=== PATIENT | male | born 1975 | race Caucasian/White ===

== ENCOUNTER 2018-04-29 03:44 | Emergency (ER) | payer OTHER ==
[2018-04-29] MEDS ORDERED: PROPARACAINE/FLUORESCEIN SOD 5 ML OPHT.BTL ONE (03:53)
[2018-04-29] MEDS ORDERED: PROPARACAINE 0.5% 15 ML OPHT DROP ONE (03:57)
[2018-04-29] MEDS ORDERED: PROPARACAINE 0.5% 15 ML OPHT DROP EACHEYE ONE (04:12)
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
[2018-04-29] MEDS ORDERED: ERYTHROMYCIN 0.5% 1 GM OPHT.OINT LEFTEYE ONE (04:50)
[2018-04-29 05:16] VITALS: BP 142/80
== END 2018-04-29 05:16 | disposition home or self-care (01) ==
DX: S05.92XA Unspecified injury of left eye and orbit, initial encounter (principal); T49.2X5A Adverse effect of local astringents and local detergents, initial encounter; Y99.8 Other external cause status